=== PATIENT | female | born 2000 | race African-American/Black ===

== ENCOUNTER 2022-07-04 15:35 | Emergency (ER) | payer MEDICAID, OTHER ==
[~2022-07-04] VITALS: Ht 167.6 cm; Wt 54.0 kg
[2022-07-04 17:09] VITALS: BP 119/74
== END 2022-07-04 17:10 | disposition home or self-care (01) ==
LOC: ER 15:35
DX: M79.661 Pain in right lower leg (principal)
CPT/HCPCS: 93971

== ENCOUNTER 2022-09-09 12:10 | Emergency (ER) | payer MEDICAID ==
[~2022-09-09] VITALS: Ht 167.6 cm; Wt 56.0 kg
[2022-09-09 12:24] VITALS: BP 119/81
[2022-09-09] MEDS ORDERED: LORazepam 0.5 MG TAB PO ONE (12:30)
== END 2022-09-09 13:18 | disposition home or self-care (01) ==
LOC: ER 12:10
DX: F41.9 Anxiety disorder, unspecified (principal); F31.9 Bipolar disorder, unspecified; F17.210 Nicotine dependence, cigarettes, uncomplicated; F12.10 Cannabis abuse, uncomplicated